=== PATIENT | female | born 1950 | race Caucasian/White ===

== ENCOUNTER 2018-04-04 15:43 | Outpatient (CLI) | payer MEDICARE, MEDICAID ==
[2018-04-04 16:26] LABS: Bilirubin Negative (Negative); Blood, Urine Trace (Negative); Clarity Cloudy (Clear); Glucose, Urine (Dipstick) Negative (Negative); Leukocyte Trace (Negative); Nitrite Negative (Negative); Protein, Urine (Dipstick) Negative (Neg-Trace); Urobilinogen 0.2 mg/dL (0.2-1.0)
[2018-04-04 18:14] LABS: Bacteria/HPF Rare-Few HPF (None Seen); RBC/HPF 0-3 HPF (0-3); WBC/HPF 0-3 HPF (0-3)
[2018-04-04 18:15] LABS: Crystals/HPF 2+ CA OXALATE HPF (Negative)
== END 2018-04-04 15:44 | disposition home or self-care (01) ==
LOC: MADLAB 15:43
PROVIDERS: ATTEND Nurse Practitioner Family
DX: I10 Essential (primary) hypertension (principal); E11.40 Type 2 diabetes mellitus with diabetic neuropathy, unspecified
CPT/HCPCS: 81001

== ENCOUNTER 2019-05-27 13:58 | Outpatient (CLI) | payer MEDICARE, MEDICAID ==
--- NOTE | 2019-05-27 14:59 | RAD ---
2 VIEW CHEST: Date: 05/27/19 INDICATION: Fever. COPD. COMPARISON: 04/14/16 portable film. FINDINGS: Hyperexpansion with flattened diaphragms consistent with history of COPD. I cannot exclude mild bibas ilar atelectasis. No evidence of focal infiltrate. No evidence of vascular congestion. Heart size upp er normal. IMPRESSION: Volume expansion of COPD. No definite infiltrate. There may be some posterior basilar atelectasis or infiltrate seen obscuring the posterior gutters on the lateral view. POS: [facility]
== END 2019-05-27 13:59 | disposition home or self-care (01) ==
LOC: MADRAD 13:58
PROVIDERS: ATTEND Nurse Practitioner Family
DX: J44.9 Chronic obstructive pulmonary disease, unspecified (principal); R50.9 Fever, unspecified
CPT/HCPCS: 71046

== ENCOUNTER 2019-06-19 17:41 | Emergency (ER) | payer MEDICARE, MEDICAID ==
[2019-06-19] MEDS ORDERED: HYDROcodone/Acetaminophen 5/325 mg Tablet ONE (18:11)
--- NOTE | 2019-06-19 18:33 | RAD ---
Radiograph right ankle 3 views: HISTORY: 68 year old female status post traumatic injury, acute FINDINGS: Ankle mortise is congruent. Talar dome is maintained. No DJD. No fracture or subluxation. IMPRESSION: Negative
--- NOTE | 2019-06-19 18:37 | RAD ---
Radiograph left foot 3 views: DATE: 06/19/2019 HISTORY: 68-year-old female with acute traumatic pain due to fall FINDINGS: On the AP view, a short oblique-transverse linear lucency is visualized at the proximal metadiaphysis of the fourth proximal phalanx. No other suspicious lucency. No dislocation. IMPRESSION: Questionable nondisplaced fracture at proximal metadiaphysis of the proximal phalanx of the left four th toe. Recommend clinical correlation: Is there point tenderness here?
== END 2019-06-19 19:30 | disposition home or self-care (01) ==
LOC: MADERS 17:41
DX: S92.522A Displaced fracture of middle phalanx of left lesser toe(s), initial encounter for closed fracture (principal); S93.401A Sprain of unspecified ligament of right ankle, initial encounter; I11.0 Hypertensive heart disease with heart failure; E11.40 Type 2 diabetes mellitus with diabetic neuropathy, unspecified; I50.9 Heart failure, unspecified; K21.9 Gastro-esophageal reflux disease without esophagitis; J44.9 Chronic obstructive pulmonary disease, unspecified; M19.90 Unspecified osteoarthritis, unspecified site; W18.30XA Fall on same level, unspecified, initial encounter
CPT/HCPCS: 29515